=== PATIENT | male | born 1975 | race Caucasian/White ===

== ENCOUNTER 2016-11-03 03:38 | Emergency (ER) | payer BC ==
[2016-11-03] MEDS ORDERED: Ondansetron 4 MG/2 ML SDV IVPUSH ONE (03:42)
[2016-11-03] MEDS ORDERED: Sodium Chloride 0.9% 1,000 ML IV ONE (03:42)
--- NOTE | 2016-11-03 03:44 | EDM.PDOC ---
ED HPI GENERAL MEDICAL PROBLEM - General Chief Complaint: Gastrointestinal Problem Stated Complaint: VOMITING Time Seen by Provider: 11/03/16 03:42 Source of Information: Reports: Patient - History of Present Illness INITIAL COMMENTS - FREE TEXT/NARRATIVE: HISTORY AND PHYSICAL: History of present illness: [] Patient presents with multiple episodes of vomiting beginning at 11:00 last evening, patient tried to alleviate vomiting by drinking large quantities of water which he then vomited up repeatedly. No fever or diarrhea constipation chest pain shortness breath headache dizziness or palpitation no bowel or urine symptoms Review of systems: As per history of present illness and below otherwise all systems reviewed and negative. Past medical history: As per history of present illness and as reviewed below otherwise noncontributory. Surgical history: As per history of present illness and as reviewed below otherwise noncontributory. Social history: No reported history of drug or alcohol abuse. Family history: As per history of present illness and as reviewed below otherwise noncontributory. Physical exam: HEENT: Atraumatic, normocephalic, pupils reactive, negative for conjunctival pallor or scleral icterus, mucous membranes moist, throat clear, neck supple, nontender, trachea midline. Lungs: Clear to auscultation, breath sounds equal bilaterally, chest nontender. Heart: S1S2, regular, negative for clicks, rubs, or JVD. Abdomen: Soft, nondistended, nontender. Negative for masses or hepatosplenomegaly. Negative for costovertebral tenderness. Pelvis: Stable nontender. Genitourinary: Deferred. Rectal: Deferred. Extremities: Atraumatic, negative for cords or calf pain. Neurovascular unremarkable. Neuro: Awake, alert, oriented. Cranial nerves II through XII unremarkable. Cerebellum unremarkable. Motor and sensory unremarkable throughout. Exam nonfocal. Diagnostics: [] Lab as below Therapeutics: [] 1 L normal saline bolus Zofran 8 mg IV Impression: [] Vomiting Definitive disposition and diagnosis as appropriate pending reevaluation and review of above. - Related Data Allergies Allergy/AdvReac Type Severity Reaction Status Date / Time vancomycin Allergy Cannot Verified 11/03/16 03:44 Remember Home Meds: Home Meds . [No Known Home Meds] 11/03/16 [History] ED ROS GENERAL - Review of Systems Review Of Systems: ROS reveals no pertinent complaints other than HPI. ED EXAM, GENERAL - Physical Exam Exam: See Below Course - Vital Signs Last Recorded V/S: Last Vital Signs Temp 36.8 C 11/03/16 03:41 Pulse 136 H 11/03/16 03:41 Resp 16 11/03/16 03:41 BP 109/74 11/03/16 03:41 Pulse Ox 94 L 11/03/16 03:41 - Orders/Labs/Meds Orders: Active Orders 24 hr Category Date Time Status INFLUENZA A+B AG SCREEN [RM] Stat Lab 11/03/16 03:55 Received UA W/MICROSCOPIC [URIN] Stat Lab 11/03/16 03:53 Ordered Sodium Chloride 0.9% [Normal Saline] 1,000 ml Med 11/03/16 03:42 Active IV STAT Medication Orders Sodium Chloride (Normal Saline) 1,000 mls @ 999 mls/hr IV STAT ONE Stop: 11/03/16 04:42 Last Admin: 11/03/16 03:55 Dose: 999 mls/hr Labs: Laboratory Tests 11/03/16 11/03/16 Range/Units 03:45 03:45 WBC 9.79 (4.0-11.0) K/uL RBC 5.19 (4.50-5.90) M/uL Hgb 17.0 (13.0-17.0) g/dL Hct 48.1 (38.0-50.0) % MCV 92.7 (80.0-98.0) fL MCH 32.8 H (27.0-32.0) pg MCHC 35.3 (31.0-37.0) g/dL RDW Std Deviation 42.3 (28.0-62.0) fl RDW Coeff of Benjamin 13 (11.0-15.0) % Plt Count 225 (150-400) K/uL MPV 9.80 (7.40-12.00) fL Neut % (Auto) 89.7 H (48.0-80.0) % Lymph % (Auto) 4.6 L (16.0-40.0) % [place] % (Auto) 5.3 (0.0-15.0) % Eos % (Auto) 0.3 (0.0-7.0) % Baso % (Auto) 0.1 (0.0-1.5) % Neut # 8.8 H (1.4-5.7) K/uL Lymph # 0.5 L (0.6-2.4) K/uL [place] # 0.5 (0.0-0.8) K/uL Eos # 0.0 (0.0-0.7) K/uL Baso # 0.0 (0.0-0.1) K/uL Nucleated RBC % 0.0 /100WBC Nucleated RBCs # 0 K/uL Sodium 142 (136-146) mmol/L Potassium 4.8 (3.5-5.1) mmol/L Chloride 113 H (98-110) mmol/L Carbon Dioxide 15 L (21-31) mmol/L BUN 20 (6.0-23.0) mg/dL Creatinine 1.1 (0.6-1.5) mg/dL Est Cr Clr Drug Dosing 102.75 mL/min Estimated GFR (MDRD) > 60.0 ml/min Glucose 121 H (60-110) mg/dL Calcium 9.0 (8.8-10.8) mg/dL Total Bilirubin 0.8 (0.1-1.5) mg/dL AST 49 H (5-40) IU/L ALT 89 H (8-54) IU/L Alkaline Phosphatase 52 (40-150) Total Protein 8.4 H (6.0-8.0) g/dL Albumin 4.6 (3.5-5.0) g/dL Globulin 3.8 H (2.0-3.5) g/dL Albumin/Globulin Ratio 1.2 L (1.3-2.8) Meds: Medications Generic Name Dose Route Start Last Admin Trade Name Freq PRN Reason Stop Dose Admin Sodium Chloride 1,000 mls @ 999 mls/hr 11/03/16 03:42 11/03/16 03:55 Normal Saline IV 11/03/16 04:42 999 mls/hr STAT ONE Administration Discontinued Medications Generic Name Dose Route Start Last Admin Trade Name Freq PRN Reason Stop Dose Admin Ondansetron HCl 8 mg 11/03/16 03:42 11/03/16 03:54 Zofran IVPUSH 11/03/16 03:43 8 mg ONETIME ONE Administration Departure - Departure Time of Disposition: 04:21 Disposition: Home, Self-Care 01 Condition: good Clinical Impression: Vomiting Forms: ED Department Discharge Additional Instructions: The following information is given to patients seen in the emergency department who are being discharged to home. This information is to outline your options for follow-up care. We provide all patients seen in our emergency department with a follow-up referral. The need for follow-up, as well as the timing and circumstances, are variable depending upon the specifics of your emergency department visit. If you don't have a primary care physician on staff, we will provide you with a referral. We always advise you to contact your personal physician following an emergency department visit to inform them of the circumstance of the visit and for follow-up with them and/or the need for any referrals to a consulting specialist. The emergency department will also refer you to a specialist when appropriate. This referral assures that you have the opportunity for follow-up care with a specialist. All of these measure are taken in an effort to provide you with optimal care, which includes your follow-up. Under all circumstances we always encourage you to contact your private physician who remains a resource for coordinating your care. When calling for follow-up care, please make the office aware that this follow-up is from your recent emergency room visit. If for any reason you are refused follow-up, please contact the [facility] emergency department at and asked to speak to the emergency department charge nurse. - My Orders Last 24 Hours: My Active Orders 11/03/16 03:42 Sodium Chloride 0.9% [Normal Saline] 1,000 ml IV STAT 11/03/16 03:53 UA W/MICROSCOPIC [URIN] Stat 11/03/16 03:55 INFLUENZA A+B AG SCREEN [RM] Stat - Assessment/Plan Last 24 Hours: My Active Orders 11/03/16 03:42 Sodium Chloride 0.9% [Normal Saline] 1,000 ml IV STAT 11/03/16 03:53 UA W/MICROSCOPIC [URIN] Stat 11/03/16 03:55 INFLUENZA A+B AG SCREEN [RM] Stat
[2016-11-03 04:19] LABS: CHLORIDE,CL 113 mmol/L (98-110); SODIUM,NA 142 mmol/L (136-146)
[2016-11-03 04:47] VITALS: BP 151/88
== END 2016-11-03 04:46 | disposition home or self-care (01) ==
LOC: MW.ED 03:38
DX: R11.10 Vomiting, unspecified (principal); Z88.1 Allergy status to other antibiotic agents
CPT/HCPCS: 36415; 80053; 85025; 87804; 96374; 99284; J2405; J7040

== ENCOUNTER 2019-01-29 13:35 | Emergency (ER) | payer BC ==
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
[2019-01-29] MEDS ORDERED: Ketorolac 60 MG/2 ML SDV IM ONE (14:21)
[2019-01-29 14:35] VITALS: BP 162/110
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
[2019-01-29] MEDS ORDERED: Acetaminophen/HYDROcodone 325-7.5 MG Tab PO STA (15:04)
== END 2019-01-29 15:25 | disposition home or self-care (01) ==
LOC: MW.ED 13:35
DX: S89.92XA Unspecified injury of left lower leg, initial encounter (principal); F17.210 Nicotine dependence, cigarettes, uncomplicated; Z88.1 Allergy status to other antibiotic agents; V86.56XA Driver of dirt bike or motor/cross bike injured in nontraffic accident, initial encounter
CPT/HCPCS: 73552; 73562; 96372; 99283; A9270; J1885; 99284

== ENCOUNTER 2019-02-01 14:31 | Emergency (ER) | payer BC ==
[2019-02-01] MEDS ORDERED: Sodium Chloride 0.9% 1,000 ML IV ONE (14:35)
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
[2019-02-01 15:22] LABS: CHLORIDE,CL 102 mmol/L (98-107); SODIUM,NA 136 mmol/L (136-148)
--- NOTE | 2019-02-01 16:03 | US ---
INDICATION: Left leg discoloration and pain x 4 days. TECHNIQUE: Ultrasound venous duplex left lower extremity. COMPARISON: None. FINDINGS: The left common femoral, superficial femoral, deep femoral, popliteal, posterior tibial, and greater saphenous veins are fully compressible normal waveforms. IMPRESSION: Normal ultrasound of the left lower extremity veins. Dictated by: Star Sinclair MD @ 02/01/2019 16:02:18 (Electronically Signed)
[2019-02-01] MEDS ORDERED: Iopamidol 755 MG/ML 500 ML Multipack Bottle IVPUSH STA (16:09)
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
--- NOTE | 2019-02-01 17:47 | CT ---
Indication: PAIN/TACHY WORSENING LEG PAIN/BRUISING,DIZZINESS Comparison: None available. Technique: CTA of the chest. Findings: Due to motion, and streak artifact from the contrast bolus within the SVC, as well as suboptimal opacification of the pulmonary arteries, the evaluation for PE is suboptimal. No central pulmonary artery embolism. The segmental and subsegmental pulmonary arteries a very poorly evaluated however. The study was not timed for evaluation of the thoracic aorta, however there is no thoracic aortic aneurysm or obvious dissection. The central airways are patent. There is very mild ground-glass opacity in the posterior and lower lobes with low lung volumes, and a few linear opacities, thus this is likely due to mild subsegment atelectasis. No pleural effusion. Neck base is normal. The heart, and pulmonary arteries are of normal size and configuration. There are no appreciable coronary artery or aortic atherosclerotic calcifications. No pericardial effusion. No mediastinal, hilar, or axillary lymphadenopathy. Diffuse hepatic steatosis. No suspicious lytic or sclerotic osseous lesions. Impression: 1. Suboptimal evaluation for PE, however no central pulmonary artery embolism seen. 2. Mild subsegmental atelectasis. Please note that all CT scans at this facility use dose modulation, iterative reconstruction, and/or weight-based dosing when appropriate to reduce radiation dose to as low as reasonably achievable. Dictated by Alban Haile MD @ Feb 01 2019 5:11PM (Electronically Signed)
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
--- NOTE | 2019-02-01 20:35 | CT ---
Indication: Injury with pain and bruising. Technique: CT left lower extremity angiogram three-phase acquired without and with 100 cc Isovue 370 IV contrast. Contrast enhanced images were obtained in the arterial and venous phases. Comparison: None. Findings: The noncontrast images demonstrate a relatively large hematoma immediately anterior to the rectus femoris muscle. The hematoma measures 24 x 12 x 3 cm. There is generalized subcutaneous edema. No sign of active bleeding or vascular injury on the angio images. No other soft tissue abnormality. There is fragmentation of the patella which appears chronic. Acute fracture amongst the fragmentation is possible. No other osseous abnormality. Impression: Relatively large hematoma is present along the rectus femorals muscle. No sign of active bleeding or vascular injury. Chronic fragmentation is favored over fracture in the patella. Please note that all CT scans at this facility use dose modulation, iterative reconstruction, and/or weight-based dosing when appropriate to reduce radiation dose to as low as reasonably achievable. Dictated by Florentin Dobbs MD @ Feb 01 2019 8:17PM Signed by Dr. Florentin Dobbs @ Feb 01 2019 8:33PM
[2019-02-01] MEDS ORDERED: Ketorolac 30 MG/ML SDV IVPUSH ONE (20:58)
[2019-02-01 21:37] VITALS: BP 148/83
== END 2019-02-01 21:10 | disposition home or self-care (01) ==
LOC: MW.ED 14:31
DX: S70.12XD Contusion of left thigh, subsequent encounter (principal); R00.0 Tachycardia, unspecified; D64.9 Anemia, unspecified; Z88.1 Allergy status to other antibiotic agents; X58.XXXD Exposure to other specified factors, subsequent encounter
CPT/HCPCS: 36415; 70450; 71275; 73706; 74177; 80053; 82550; 84484; 85025; 86850; 86900; 86901; 93971; 96361; 96374; 99284; J1885; J7040; Q9967; 93005

== ENCOUNTER 2019-02-04 07:56 | Emergency (ER) | payer BC ==
[2019-02-04] MEDS ORDERED: HYDROmorphone 2 MG/ML SDV IM ONE (08:14)
[2019-02-04] MEDS ORDERED: Ondansetron 4 MG Tab.DIS PO ONE (08:14)
[2019-02-04] MEDS ORDERED: HYDROmorphone 1 MG/ML Syringe IM ONE (08:17)
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
[2019-02-04 09:08] LABS: CHLORIDE,CL 104 mmol/L (98-107); SODIUM,NA 138 mmol/L (136-148)
[2019-02-04 09:45] VITALS: BP 126/88
== END 2019-02-04 09:45 | disposition home or self-care (01) ==
LOC: MW.ED 07:56
DX: S80.11XA Contusion of right lower leg, initial encounter (principal); S70.01XA Contusion of right hip, initial encounter; S90.01XA Contusion of right ankle, initial encounter; Z88.1 Allergy status to other antibiotic agents; V86.96XA Unspecified occupant of dirt bike or motor/cross bike injured in nontraffic accident, initial encounter
CPT/HCPCS: 36415; 80048; 82550; 85025; 96372; 99283; A9270; J1170